=== PATIENT | female | born 1975 | race Caucasian/White ===

== ENCOUNTER → 2020-12-01 13:40 | Outpatient (CLI) | payer BC, SELFPAY ==
--- NOTE | ~2020-12-01 | US_ITS ---
EXAMINATION: US thyroid DATE: 12/01/2020 15:03 INDICATION: Hypothyroidism. TECHNIQUE: Multiple ultrasound images of the thyroid were obtained. COMPARISON: None. FINDINGS: The right thyroid lobe measures 1.3 x 0.7 x 0.6 cm. The left thyroid lobe measures 2.2 x 0.8 x 0.5 c m. There is normal echotexture and echogenicity throughout the thyroid gland. No discrete nodules id entified. Normal vascular flow is present. IMPRESSION: 1. Normal thyroid. Reviewed, dictated and finalized at location A. OMER RETENTION SPECIALIST IMPRESSION: 1. Normal thyroid.
== END ==
PROVIDERS: PCP Emergency Medicine; Visit Provider Emergency Medicine
DX: E03.9 Hypothyroidism, unspecified (principal)
CPT/HCPCS: 76536

== ENCOUNTER → 2020-12-01 13:43 | Outpatient (CLI) | payer BC, SELFPAY ==
--- NOTE | ~2020-12-01 | MM_ITS ---
EXAMINATION: MM screening bambi BI w francine HISTORY: Screening TECHNIQUE: Craniocaudal and mediolateral oblique 3-D tomosynthesis images were obtained and synthetic 2-D images were generated. CAD analysis was submitted and interpreted. COMPARISON: No prior mammogram is available for comparison at this institution. BREAST PARENCHYMAL COMPOSITION: The breasts are heterogeneously dense, which may obscure small masses . FINDINGS: There is no mammographic evidence for malignancy in the right breast. There are masses in t he upper outer quadrant of the left breast, partially obscured by fibroglandular tissue. IMPRESSION: 1. Left breast masses, upper outer quadrant. 2. Additional mammographic views and possible breast ultrasound are recommended. BI-RADS Category 0: Incomplete: Needs additional imaging evaluation. Reviewed, dictated and finalized at location A. BAILER IMPRESSION: 1. Left breast masses, upper outer quadrant. 2. Additional mammographic views and possible breast ultrasound are recommended . BI-RADS Category 0: Incomplete: Needs additional imaging evaluation.
== END ==
PROVIDERS: PCP Emergency Medicine; Visit Provider Obstetrics & Gynecology
DX: Z12.31 Encounter for screening mammogram for malignant neoplasm of breast (principal); R92.8 Other abnormal and inconclusive findings on diagnostic imaging of breast
CPT/HCPCS: 77063; 77067

== ENCOUNTER → 2020-12-23 14:11 | Outpatient (CLI) | payer BC, SELFPAY ==
--- NOTE | ~2020-12-23 | MMUS_ITS ---
EXAMINATION: MM diagnostic mammo unilat LT, US breast LT limited HISTORY: Follow-up left breast masses. TECHNIQUE: Additional 3-D tomosynthesis images of the left breast were performed and synthetic 2-D im ages were generated. CAD analysis was submitted and interpreted. High resolution left breast ultrasou nd was performed. COMPARISON: Comparison to multiple prior studies sequentially, with oldest reviewed study dated 01/14. BREAST PARENCHYMAL COMPOSITION: The breasts are heterogenously dense, which may obscure small masses. FINDINGS: MAMMOGRAPHIC FINDINGS: There is a circumscribed 1.6 cm mass in the upper outer quadrant of the left breast. No suspicious ca lcifications or architectural distortion. ULTRASOUND: Limited left breast ultrasound: At 1-2:00, 6 cm from the nipple there is an oval circumscribed hypoec hoic mass measuring 1.6 x 1.2 x 0.9 cm. This mass is parallel orientation with mixed posterior attenu ation and no significant internal vascularity. No significant interval change to this mass dating shannan to 2016. At 2:00, 6.5 cm from the nipple there is a 4 mm cyst. At 6:00 near the areola there is an 8 mm cyst. IMPRESSION: 1. No evidence for malignancy in the left breast. Stable dominant mass in the upper outer quadrant da ting back to 2016. 2. Routine yearly screening mammogram and regular clinical breast examination are recommended. BI-RADS Category 2: Benign finding(s). Reviewed, dictated and finalized at location A. LE PATTERNMAKER IMPRESSION: 1. No evidence for malignancy in the left breast. Stable dominant mass in the u pper outer quadrant dating back to 2016. 2. Routine yearly screening mammogram and regular clinical breast examination a re recommended. BI-RADS Category 2: Benign finding(s).
== END ==
PROVIDERS: PCP Emergency Medicine; Visit Provider Obstetrics & Gynecology
DX: N60.02 Solitary cyst of left breast (principal); N63.21 Unspecified lump in the left breast, upper outer quadrant
CPT/HCPCS: 76642; 77065

== ENCOUNTER → 2022-01-27 13:19 | Outpatient (CLI) | payer BC, SELFPAY ==
--- NOTE | ~2022-01-27 | MM_ITS ---
EXAMINATION: MM screening bambi BI w francnie HISTORY: Screening mammogram TECHNIQUE: Craniocaudal and mediolateral oblique 3-D tomosynthesis images were obtained and synthetic 2-D images were generated. CAD analysis was submitted and interpreted. COMPARISON: December 23, 2020 diagnostic left mammogram and limited left breast ultrasound examinatio n 12/01/2020 bilateral screening mammogram BREAST PARENCHYMAL COMPOSITION: The breasts are heterogeneously dense, which may obscure small masses . FINDINGS: Chronic stable 1.5 cm circumscribed mass in the posterior upper outer left breast, not significantly changed since December 28, 2016. There is no evidence of suspicious mass, calcification, or data analytics architect ural distortion to suggest malignancy in either breast. There has been no suspicious interval change. IMPRESSION: 1. Chronic stable 1.5 cm circumscribed benign appearing mass, posterior upper outer left breast. No m ammographic evidence of malignancy. 2. Recommend routine screening mammography in one year. BI-RADS Category 2: Benign finding(s). Reviewed, dictated and finalized at location A. IMPRESSION: 1. Chronic stable 1.5 cm circumscribed benign appearing mass, posterior upper o uter left breast. No mammographic evidence of malignancy. 2. Recommend routine screening mammography in one year. BI-RADS Category 2: Benign finding(s).
== END ==
PROVIDERS: PCP Emergency Medicine; Visit Provider Obstetrics & Gynecology
DX: Z12.31 Encounter for screening mammogram for malignant neoplasm of breast (principal); R92.8 Other abnormal and inconclusive findings on diagnostic imaging of breast
CPT/HCPCS: 77063; 77067

== ENCOUNTER → 2022-01-27 13:20 | Outpatient (CLI) | payer BC, SELFPAY ==
--- NOTE | ~2022-01-27 | DEXA_ITS ---
Bone Density Report Name: CHELSEA GAYLE Age: 46 Sex: Female Ethnicity: White Date of : 1975 Indication: height loss; asthma or emphysema; other senior care current drug therapy Referring Provider: MAX DEVI Study: Bone densitometry was performed. Exam Date: January 27, 2022 Accession number: [id number] Bone Density: Region BMD T-score Z-score Classification AP Spine (L1-L4) 1.144 0.9 1.3 Normal Femoral Neck (Left) 0.909 0.5 1.0 Normal Total Hip (Left) 1.093 1.2 1.5 Normal Femoral Neck (Right) 0.927 0.7 1.1 Normal Total Hip (Right) 1.017 0.6 0.9 Normal Total Hip Mean 1.055 0.9 1.2 Normal World Health Organization criteria for BMD impression classify patients as: Normal (T-score at or above -1.0), Osteopenia (T-score between -1.0 and -2.5), or Osteoporosis (T-score at or below -2.5). 10-year Fracture Risk: FRAX not reported because: Premenopausal woman All T-scores for Spine Total, Hip Total, Femoral Neck at or above -1.0 Clinical Information Provided by Patient: Has used the following medications: Calcium Has the following medical conditions: Asthma or Emphysema Patient maximum height was 68 Drinks caffeinated beverages Onset of menses at age 14 Premenopausal Number of children 3 Impression: The patient's bone mass is within expected range for age, gender and ethnicity. Discussion: BONE DENSITY IS WITHIN EXPECTED LIMITS FOR AGE, SEX AND RACE. Bone density is within expected limits for age, sex and race at all sites measured. The patient should follow a healthful lifestyle (good nutrition with adequate calcium and vitamin D, and appropriate weight-bearing exercise). Follow-Up: Consider repeating this study in 5 years or sooner if there is some new clinical indication. Reported by: NORA on 01/27/2022 1:44:00 PM. Reviewed, dictated and finalized at location ASamantha BERRY
== END ==
PROVIDERS: PCP Emergency Medicine; Visit Provider Emergency Medicine
DX: Z78.0 Asymptomatic menopausal state (principal)
CPT/HCPCS: 77080

== ENCOUNTER 2023-01-14 00:17 | Day surgery (SDC) | payer BC, SELFPAY ==
[2023-01-05 10:52] VITALS: BMI 24.1
--- NOTE | 2023-01-05 10:57 | PC.NURSE ---
Report to the Outpatient Waiting Room, entrance under the green pavilion located off [facility], at time 0615 on date 01/14/23. Planned Procedure Time: 0815. Time changes happen often and if your time is changed the preop area will call you the afternoon before. - You and your visitor will be asked to self-screen and do not enter if you have any COVID symptoms. - Only one visitor is requested with a max of two and NO children visitors are allowed at this time. - The patient visitor may be requested to leave or wait in car when not with patient due to distancing restrictions. - A mask is optional within the hospital at this time. Patients may have clear liquids (water, carbonated beverages, clear teas, apple juice) until 3 hours prior to surgery with a maximum of 20 ounces. - No food from midnight until time of surgery Take the following medications with a SIP of water the morning of surgery: LEVOTHYROXINE DO NOT STOP ANY OF YOUR OTHER PRESCRIPTION MEDICATIONS PRIOR TO SURGERY EXCEPT THE FOLLOWING Medications to discontinue per physician: VITAMINS/SUPPLEMENTS Date to take last dose: 01/10/23 Please no make-up, nail tunisian, hairspray, perfume, deodorant, or body powder the day of surgery. No jewelry (including any body piercings) or valuables the day of surgery, leave them at home. Please take a shower or bath the night before, or the morning of, surgery with an antibacterial soap. Wear comfortable, loose fitting clothing. - Jewelry must be removed prior to entering the operating room. Rings and piercings that are not removed may be cut off. - The hospital will not accept responsibility for valuables. - Please leave all valuables, including medications, at home the day of surgery. If you are going home after surgery, a licensed telephone directory distributor driver must drive you home. - NO public transportation without another adult if you receive anesthesia. - We recommend that an adult stay with you for 24 hours following discharge. - We also recommend that you do not drive, make important decision, drink alcoholic beverages, or take any drugs that were not prescribed by your health care provider for at least 24 hours after your discharge time. Follow any additional instructions given to you from your surgeon. If you or anyone in your household have experienced Covid symptoms in the past week, please notify your surgeon or the nurse liaison at the phone number below for possible testing. Telephone instructions given to JHONATHAN GAYLE and asked if any additional questions and then verbalized understanding. Patient advised to call surgeon office or pre surgery nurse liaison [phone] if any additional questions.
--- NOTE | 2023-01-10 12:39 | PM.IMHP ---
H&P: HPI History of Present Illness Date/Time: 01/10/23 12:39 Chief Complaint: Mixed incontinence Narrative: Desires a surgical procedure for stress incontinence. She is on Myrbetriq for overactive bladder Review of Systems Review of Systems: All systems reviewed & are unremarkable except as noted in HPI and below PMFSH Surgical History Surgical History H/O gynecological procedure 11/13/20 vulvar colposcopy 10/22/2020 D&C Family History Family History Other Breast cancer Diabetes mellitus Social History Social History Smoking packs per day: 1 Smoking cigarettes per day: 20.0 Years smoked: 15 Smoking pack-years: 15.00 Smoking status: Former smoker Tobacco type: cigarettes Smoking end date: 11/07/95 Alcohol intake: current Drinks per week: 4 Substance use: never Substance use type: does not use Living arrangements: with family Occupation/Education: occupation Gender identity (if verbalized by the patient): Female Sexual Orientation (if Verbalized by the Patient): Straight or Heterosexual Spiritual care concerns: No Meds Home Medications and Allergies Home Medications Medication Instructions Recorded Confirmed Type desogestrel-e.estradiol 0.15 1 tablet PO DAILY #112 tabs 11/02/22 01/05/23 Rx mg-0.02 mg(21)/e.estrad 0.01 mg(5) tablet (Kariva (28)) esomeprazole magnesium 40 mg 40 mg PO DAILY 01/05/23 01/05/23 History capsule,delayed release (Nexium) levothyroxine 150 mcg tablet 150 mcg PO DAILY 01/05/23 01/05/23 History multivitamin 1 tablet PO DAILY 01/05/23 01/05/23 History omega 8-ndj-hsz-fish oil 1,000 mg 1 cap PO DAILY 01/05/23 01/05/23 History (120 mg-180 mg) capsule (Fish Oil) semaglutide 0.25 mg or 0.5 mg (2 0.5 mg subcut WEEKLY 01/05/23 01/05/23 History mg/1.5 mL) subcutaneous pen injector (Ozempic) Allergies Allergy/AdvReac Type Severity Reaction Status Date / Time Penicillins Allergy Severe Hives Verified 01/05/23 10:49 Exam Narrative: No acute distress Normal breathing Alert and oriented x3 Urethral hypermobility Assessment and Plan Assessment and plan (1) KAREN (stress urinary incontinence, female): Code(s): N39.3 - Stress incontinence (female) (male) Status: Acute Assessment and Plan: Plan for urethral sling. Understands risks and benefits. Understands risks of bleeding, infection, damage to the urinary tract, vaginal mesh extrusion, urinary tract mesh erosion, obstructive voiding requiring secondary procedure, hip and leg pain, dyspareunia, need for ancillary procedures. Understands will not help overactive bladder symptoms. Agrees to proceed.
--- NOTE | 2023-01-14 07:13 | WPDHPUPDATE1 ---
History and Physical Update Update Date/Time: 01/14/23 07:13 History and Physical has been reviewed, including an updated exam of the patient. There are NO changes in the patient's condition. Risks, benefits, and alternatives have been discussed and questions answered. Patient agrees to proceed with procedure.
--- NOTE | 2023-01-14 07:25 | WPDANESEPPF ---
Anes - Initial Pre Proc Eval Procedure: Operation Date: 01/14/23 08:15 Proposed Procedures p Urethral Sling - Justin Zendejas MD Date/Time: 01/14/23 07:25 Surgeon: Justin Zendejas MD Pre Op Diagnosis: stress Incontinence Patient Data Age: 47 Gender: F Height: 1.7 m Weight: 69.85 kg Allergies Allergy/AdvReac Type Severity Reaction Status Date / Time Penicillins Allergy Severe Hives Verified 01/05/23 10:49 Home Medications Medication Instructions Recorded Confirmed Type desogestrel-e.estradiol 0.15 1 tablet PO DAILY #112 tabs 11/02/22 01/05/23 Rx mg-0.02 mg(21)/e.estrad 0.01 mg(5) tablet (Kariva (28)) esomeprazole magnesium 40 mg 40 mg PO DAILY 01/05/23 01/05/23 History capsule,delayed release (Nexium) levothyroxine 150 mcg tablet 150 mcg PO DAILY 01/05/23 01/05/23 History multivitamin 1 tablet PO DAILY 01/05/23 01/05/23 History omega 3-qen-anc-fish oil 1,000 mg 1 cap PO DAILY 01/05/23 01/05/23 History (120 mg-180 mg) capsule (Fish Oil) semaglutide 0.25 mg or 0.5 mg (2 0.5 mg subcut WEEKLY 01/05/23 01/05/23 History mg/1.5 mL) subcutaneous pen injector (Ozempic) Patient hx anesthesia problems: post op nausea/vomiting Family hx anesthesia problems: none Results Review: All pre-operative results and documents have been reviewed as part of the pre-operative evaluation. [facility] Surgical History Surgical History H/O gynecological procedure 11/13/20 vulvar colposcopy 10/22/2020 D&C Family History Family History Other Breast cancer Diabetes mellitus Social History Social History Smoking packs per day: 1 Smoking cigarettes per day: 20.0 Years smoked: 15 Smoking pack-years: 15.00 Smoking status: Former smoker Tobacco type: cigarettes Smoking end date: 11/07/95 Alcohol intake: current Drinks per week: 4 Substance use: never Substance use type: does not use Living arrangements: with family Occupation/Education: occupation Gender identity (if verbalized by the patient): Female Sexual Orientation (if Verbalized by the Patient): Straight or Heterosexual Spiritual care concerns: No Anes - Eval Final PreProcedure Day of Procedure 01/14/23 07:25 Patient weight: normal Heart: regular rate and rhythm Lungs: clear to auscultation Neurological: alert and oriented Last oral intake: >/= 8 hours ASA classification: II Emergent: no Anesthetic plan: proceed Anesthesia type and monitoring: general GIVS and standard monitoring Results Review: All pre-operative results and documents have been reviewed as part of the pre-operative evaluation. Informed Consent: The patient's anesthetic plan and its attendant risks and benefits were discussed with the patient/family/POA. Questions were solicited and answers provided to the satisfaction of the patient/family/POA.
[2023-01-14 07:34] VITALS: BP 129/78; PULSE 87; RESP 14; TEMP 36.3; O2SAT 100
[2023-01-14] MEDS: LACTATED RINGERS 1,000 ML 30 ML IV CONT ×2 (07:38→09:37)
[2023-01-14] MEDS: ceFAZolin 2 GM/D5W 50 ML 2 GM/50 ML BAG IVPB (08:11)
[2023-01-14] MEDS: KETOROLAC 30 MG/ML VIAL (*BKC) IV PUSH (08:15)
[2023-01-14] MEDS: BUPIVACAINE/EPINEPHRINE 0.25% 50 ML VIAL 10 ML INFILTRATE (08:26)
--- NOTE | 2023-01-14 08:54 | W.PM.PROC2 ---
Procedure Note - Detailed Date of Procedure 01/14/23 Pre-op Diagnosis stress Incontinence Post-op Diagnosis Same Procedure Performed mid urethral sling cystoscopy Surgeon Justin Zendejas MD Anesthesia MAC Indications This is a female with confirm stress urinary incontinence. She desires surgical correction. She understands the risks of bleeding, infection, injury to the urinary tract, vaginal mesh extrusion, urinary tract mesh erosion, obstructive voiding requiring a secondary procedure, hip and leg pain, dyspareunia, inability to improve overactive bladder symptoms. She agrees to proceed. Description of Procedure She was correctly identified. Informed consent obtained. She was brought the operating room. She was given appropriate anesthesia. She was given appropriate perioperative antibiotics. A time-out performed. I marked out the site of the inner thigh incisions. I anesthetized the skin and made those incisions. I anesthetized the anterior vaginal wall over the mid urethra. I made a 1 cm incision. I dissected out laterally taking great care not to injure the refilled vaginal wall. I passed the helical trocars. First on the left. Then on the right. I did this from the thigh incision towards the vaginal incision. The sling was connected to the trocars and brought out through the thigh incision. I tensioned the sling appropriately. I cut and the plastic sheaths. I then closed the incision with 2 0 Vicryl. On cystoscopy there is no tumors or surgical artifact. There was no surgical artifact in the urethra. I cut the excess sling material. Close incisions with glue. She was awakened and transferred to the PACU in stable condition. Implants Urethral sling Estimated Blood Loss 20 Drains No Packing No Pathology None sent Complications No immediate complications Condition Stable Disposition PACU
[2023-01-14 08:55] VITALS: BP 104/60; PULSE 92; RESP 16; O2SAT 100
[2023-01-14 09:25] VITALS: BP 123/80; PULSE 74; RESP 12
== END 2023-01-14 10:10 | disposition home or self-care (01) ==
PROVIDERS: PCP Emergency Medicine; Visit Provider Urology
PROC: (CPT 51992; principal; 2023-01-14 08:15)
DX: N39.3 Stress incontinence (female) (male) (principal); Z87.891 Personal history of nicotine dependence
CPT/HCPCS: 51992; A9270; C1771; J0131; J0690; J1100; J1885; J2250; J2405; J2704; J3010; J7030; J7120

== ENCOUNTER → 2023-03-04 07:12 | Outpatient (CLI) | payer BC, SELFPAY ==
--- NOTE | ~2023-03-04 | MM_ITS ---
EXAMINATION: MM screening bambi BI w francine HISTORY: Screening mammogram TECHNIQUE: Craniocaudal and mediolateral oblique 3-D tomosynthesis images were obtained and synthetic 2-D images were generated. CAD analysis was submitted and interpreted. COMPARISON: 01/27/2022 bilateral screening mammogram examination 12/23/2020 diagnostic left mammogram and limited left breast ultrasound examination 12/01/2020 bilateral screening mammogram BREAST PARENCHYMAL COMPOSITION: The breasts are heterogeneously dense, which may obscure small masses . FINDINGS: Again there is an approximately 11 x 15 mm mass in the upper outer left breast which appear s stable since 12/01/2020 with the exception of some interval rounded calcifications along the margin, likely superficial benign calcifications associated with a fibroadenoma. Diagnostic left mammogram w ith magnification views and left breast ultrasound examination are recommended to better demonstrate the microcalcifications and to confirm stable size of the mass since 12/23/2020 left breast ultrasound examination. Otherwise there is no evidence of suspicious mass, calcification, or architectural distortion to sugg est malignancy in either breast. There has been no suspicious interval change. IMPRESSION: 1. New microcalcifications near previously reported stereotactic upper-outer quadrant left breast mas s 2. Diagnostic left mammogram with magnification views and left breast ultrasound examination are cristofer mmended BI-RADS Category 0: Incomplete: Needs additional imaging evaluation. Reviewed, dictated and finalized at location A. IMPRESSION: 1. New microcalcifications near previously reported stereotactic upper-outer qu adrant left breast mass 2. Diagnostic left mammogram with magnification views and left breast ultrasoun d examination are recommended BI-RADS Category 0: Incomplete: Needs additional imaging evaluation.
== END ==
PROVIDERS: PCP Emergency Medicine; Visit Provider Obstetrics & Gynecology
DX: Z12.31 Encounter for screening mammogram for malignant neoplasm of breast (principal); R92.8 Other abnormal and inconclusive findings on diagnostic imaging of breast
CPT/HCPCS: 77063; 77067

== ENCOUNTER → 2023-03-29 07:48 | Outpatient (CLI) | payer BC, SELFPAY ==
--- NOTE | ~2023-03-29 | MM_ITS ---
EXAMINATION: MM diagnostic mammo unilat LT HISTORY: Left breast calcifications on screening mammogram TECHNIQUE: Additional views of the left breast were performed and synthetic 2-D images were generated . CAD analysis was submitted and interpreted. COMPARISON: 03/04/2023,01/27/2022, 12/23/2020, 12/01/2020 FINDINGS: There are grouped calcifications in the posterior third of the upper outer quadrant of the breast at the 2:00 location 7.5 cm from the nipple. These appear to be round in morphology. They are in association with a mammographically stable mass. IMPRESSION: 1. Probably benign left breast calcifications. 2. Recommend 6 month follow-up left diagnostic mammogram. BI-RADS category 3, probably benign findings. Reviewed, dictated and finalized at location A.
== END ==
PROVIDERS: PCP Emergency Medicine; Visit Provider Obstetrics & Gynecology
DX: R92.1 Mammographic calcification found on diagnostic imaging of breast (principal); R92.8 Other abnormal and inconclusive findings on diagnostic imaging of breast
CPT/HCPCS: 77065